=== PATIENT | male | born 1965 | race Caucasian/White ===

== ENCOUNTER → 2020-01-09 | Outpatient (CLI) | payer OTHER ==
[~2020-01-09] MED LIST: ALBU90OI INH; ALBU90OI6 INH; AZIT250 PO; BENZ100A PO; CEPH500 PO; CODGUAEL PO; DOXY100 PO; FLUO20 PO; HYDACE5 PO; METPRE4DP PO; NAPR500 PO; OXYACE5T PO; PROCODE120 PO; PROM25 PO; Prednisone20 MG PO; RANI150 PO; Vitamin C100 MG; Zofran Odt4 MG SL
== END | disposition home or self-care (01) ==
LOC: PLD 15:02 → LAB SHORT 15:02
DX: L82.1 Other seborrheic keratosis (principal)
CPT/HCPCS: 88305

== ENCOUNTER → 2020-02-23 | Outpatient (CLI) | payer OTHER ==
[~2020-02-23] MED LIST changes: +ANORO ELLIPTA1 EAC1 INH; +ATORVASTATIN CA40 M1; +ERGO50000; +Lisinopril2.5 MG; +Ropinirole HCl0.5 MG PO; +TAMS.4ER PO
== END | disposition home or self-care (01) ==
LOC: PLD 13:39 → LAB SHORT 13:39
DX: D22.5 Melanocytic nevi of trunk (principal); L57.0 Actinic keratosis
CPT/HCPCS: 88305

== ENCOUNTER 2020-03-10 10:01 | Day surgery (SDC) | payer OTHER ==
[~2020-03-10] VITALS: Ht 172.7 cm; Wt 81.8 kg
[~2020-03-10 10:01] MED LIST changes: -ATORVASTATIN CA40 M1; -ERGO50000; -Lisinopril2.5 MG
[2020-03-10] MEDS ORDERED: ERGO50000 (10:53)
[2020-03-10] MEDS ORDERED: ATORVASTATIN CA40 M1 (10:53)
[2020-03-10] MEDS ORDERED: Lisinopril2.5 MG (10:53)
== END 2020-03-10 12:49 | disposition home or self-care (01) ==
LOC: ORSCSDS 10:01
PROVIDERS: Internal Medicine Gastroenterology
PROC: 0DBL8ZX Excision of Transverse Colon, Via Natural or Artificial Opening Endoscopic, Diagnostic (ICD-10-PCS; principal; 2020-03-10 11:45)
PROC: 0DBE8ZX Excision of Large Intestine, Via Natural or Artificial Opening Endoscopic, Diagnostic (ICD-10-PCS; principal; 2020-03-10 11:45)
PROC: 0DBK8ZX Excision of Ascending Colon, Via Natural or Artificial Opening Endoscopic, Diagnostic (ICD-10-PCS; principal; 2020-03-10 11:45)
DX: K50.90 Crohn's disease, unspecified, without complications (principal); Z86.010 Personal history of colon polyps; D12.3 Benign neoplasm of transverse colon; D12.2 Benign neoplasm of ascending colon; K63.5 Polyp of colon; K64.8 Other hemorrhoids; F17.210 Nicotine dependence, cigarettes, uncomplicated; G47.33 Obstructive sleep apnea (adult) (pediatric); Z79.899 Other long term (current) drug therapy
CPT/HCPCS: 88305; J2704; J7120

== ENCOUNTER → 2021-01-31 | Outpatient (CLI) | payer OTHER ==
[~2021-01-31] MED LIST changes: +ATORVASTATIN CA40 M1; +ERGO50000; +Lisinopril2.5 MG
== END | disposition home or self-care (01) ==
LOC: LAB 14:52 → LAB SHORT 14:52
DX: L98.9 Disorder of the skin and subcutaneous tissue, unspecified (principal)
CPT/HCPCS: 88305

== ENCOUNTER 2021-10-14 10:32 | Day surgery (SDC) | payer OTHER ==
[~2021-10-14] VITALS: Ht 172.7 cm; Wt 82.5 kg
[~2021-10-14 10:32] MED LIST changes: -ATORVASTATIN CA40 M1; +ATORVASTATIN CA40 M1 PO; -Lisinopril2.5 MG; +Lisinopril2.5 MG PO; +NICODERM CQ1 EA10 TOP; +NITR.4SL SL; +PANT40 PO; +Protonix40 MG PO; +SILVADENE20 G1 TOP; +VITAMIN D2 PO; +[UNRECOGNIZED DRUG - OTHER] BOTHEYES
--- NOTE | 2021-10-14 16:00 | NUR ---
Patient up to Ambulate independently. Gait steady. Geovanna Paws warming gown applied. Discharge instructions reviewed with patient. Patient verbalizes understanding. Copy given to patient to take home. History, Chart, Medications and Allergies reviewed before start of procedure.Patient States Post-Procedure ride home has been arranged. Discharged via wheelchair to private car for ride home.
== END 2021-10-14 16:03 | disposition home or self-care (01) ==
LOC: ORSCMMR 10:32 → ORD 12:00 → ORSCMMR 16:03
PROVIDERS: Surgery
PROC: 0YUA4JZ Supplement Bilateral Inguinal Region with Synthetic Substitute, Percutaneous Endoscopic Approach (ICD-10-PCS; principal; 2021-10-14 12:00)
PROC: 8E0W4CZ Robotic Assisted Procedure of Trunk Region, Percutaneous Endoscopic Approach (ICD-10-PCS; principal; 2021-10-14 12:00)
DX: K40.20 Bilateral inguinal hernia, without obstruction or gangrene, not specified as recurrent (principal); I10 Essential (primary) hypertension; J44.9 Chronic obstructive pulmonary disease, unspecified; Z87.891 Personal history of nicotine dependence; E78.00 Pure hypercholesterolemia, unspecified; K50.90 Crohn's disease, unspecified, without complications; Z79.899 Other long term (current) drug therapy
CPT/HCPCS: 49650; S2900; A9270; C1781; J0690; J1100; J1885; J2250; J2405; J2704; J2710; J3010; J7120

== ENCOUNTER 2024-01-14 12:25 | Emergency (ER) | payer OTHER ==
[~2024-01-14] VITALS: Ht 172.7 cm; Wt 78.9 kg
[2024-01-14 12:57] VITALS: BP 128/84
== END 2024-01-14 14:36 | disposition home or self-care (01) ==
LOC: ER 12:25
DX: S80.11XA Contusion of right lower leg, initial encounter (principal); W22.8XXA Striking against or struck by other objects, initial encounter; J44.9 Chronic obstructive pulmonary disease, unspecified; F17.200 Nicotine dependence, unspecified, uncomplicated; Z91.041 Radiographic dye allergy status; Z88.8 Allergy status to other drugs, medicaments and biological substances
CPT/HCPCS: 73562-RT; 99283-25

== ENCOUNTER 2024-06-25 09:03 | Day surgery (SDC) | payer OTHER ==
[~2024-06-25] VITALS: Ht 172.7 cm; Wt 83.9 kg
[~2024-06-25 09:03] MED LIST changes: +Bupivacaine 0.5% W/EPI 1:200000 SDV 30 ML Vial ONE; +Dexamethasone Sod Phos 10 MG/ML 1ML VIAL ONE; +FentaNYL Citrate 50 MCG/ML 2 ML Injection ONE; +Ketorolac Tromethamine 30mg Vial ONE; +Lactated Ringer's 1,000 ML IV ONE; +Ondansetron HCl 2 MG / ML 2ML Vial ONE; +propofoL 20 ML IV ONE
[2024-06-25] MEDS ORDERED: CeFAZolin Sodium 2,000 MG VIAL ONE (09:13)
[2024-06-25] MEDS ORDERED: Rocuronium Bromide 10 MG/ML 5ML Injection IV ONE (09:15)
[2024-06-25] MEDS ORDERED: HYDROCODONE-AC1 EA19 (09:33)
[2024-06-25] MEDS ORDERED: Lactated Ringer's 1,000 ML IV ONE (10:04)
--- NOTE | 2024-06-25 10:11 | NUR ---
06/25/24 N[place]1 Magali Hernandez PATIENT READY, EDUCATION COMPLETE, CALL LIGHT WITHIN REACH.
[2024-06-25] MEDS ORDERED: Glycopyrrolate 0.2 MG/ML 5ML VIAL ONE (10:27)
[2024-06-25] MEDS ORDERED: Midazolam HCl 1MG / ML 2ML Vial ONE (11:01)
[2024-06-25] MEDS ORDERED: EPINEPhrine HCl 1 MG/ML 1ML Amp ONE (11:18)
--- NOTE | 2024-06-25 12:22 | NUR ---
06/25/24 1222 Abby Jhaveri PT TO PACU WITH ORAL AIRWAY IN PLACE UPON ARRIVAL. VSS. MDA AT BEDSIDE
--- NOTE | 2024-06-25 13:03 | NUR ---
06/25/24 1303 Abby Jhaveri PT STOOD UP TO VOID AT [id number]. VOIDED 200ML
[2024-06-25] MEDS ORDERED: OxyCODONE HCL 5 MG TAB ONE (13:09)
[2024-06-25 13:29] VITALS: BP 139/79
== END 2024-06-25 13:54 | disposition home or self-care (01) ==
LOC: ORSCSDS 09:03
PROVIDERS: Orthopaedic Surgery
PROC: 0SBC4ZZ Excision of Right Knee Joint, Percutaneous Endoscopic Approach (ICD-10-PCS; principal; 2024-06-25 10:30)
DX: S83.241A Other tear of medial meniscus, current injury, right knee, initial encounter (principal); X50.1XXA Overexertion from prolonged static or awkward postures, initial encounter; I10 Essential (primary) hypertension; J44.9 Chronic obstructive pulmonary disease, unspecified; E11.9 Type 2 diabetes mellitus without complications; Z87.891 Personal history of nicotine dependence; Z79.899 Other long term (current) drug therapy
CPT/HCPCS: A9270; J0171; J0690; J1100; J1885; J2250; J2405; J2704; J3010; J7120